=== PATIENT | female | born 1965 | race Two or more races ===

== ENCOUNTER 2017-03-08 13:06 | Emergency (ER) | payer SELFPAY ==
--- NOTE | ~2017-03-08 | CT114 ---
[facility] A Service of [facility] RADIOLOGY TEXT RESULTS PATIENT: SHEBA AUGUSTIN LOCATION: SED : 61 UNIT #: [id number] AGE: [address]: Katrin Gómez APRN SEX: F ORDER DR: [id number] [address] [address] [id number] MR#: [id number] Acc #: [id number] NAME: SHEBA AUGUSTIN : 1965 SEX: F STUDY DATE/TIME: 03/08/2017 14:39 UNIT: SED ROOM: STUDY DESCRIPTION: CT Soft Tissue Neck W Cont Attending Physician: Katrin Gómez A.P.R.N. Ordering Physician: Katrin Gómez A.P.R.N. MEDICAL IMAGING REPORT This report is preliminary unless electronic signature is present. EXAM CT soft tissue neck HISTORY 48-year-old female complains of sore throat with white patches x1 month. TECHNIQUE This CT exam was performed with one or more of the following radiation dose reduction techniques: automatic control, adjustment of mA and/or kV according to patient size, and iterative reconstruction. FINDINGS Thin section axial images performed through the neck from the skull base to the silvia following IV contrast. Initial IV infiltrated with about 30 mL of contrast. A new IV was started and an additional injection was performed of Isovue-370. The parotid submandibular and thyroid glands appear normal. There is shotty bilateral cervical lymphadenopathy left greater than right. On the left there are both anterior and posterior cervical lymph nodes which appear mildly prominent but no necrotic nodes identified. Mild prominence of the pharyngeal mucosal space but no focal fluid collections identified. No mass lesions. Head and neck vasculature unremarkable. The skull base normal. Degenerative disc changes noted in the cervical spine at the C5-6 disc level with uncovertebral osteophyte contributing to left C5-6 foraminal stenosis. Upper thorax unremarkable. IMPRESSION 1. Minimal prominence of the pharyngeal mucosal space nonspecific but may reflect pharyngitis but no focal abscess or drainable fluid collection. No mass lesions seen. 2. Mild predominately left anterior and posterior cervical [facility] A Service of [facility] RADIOLOGY TEXT RESULTS PATIENT: SHEBA AUGUSTIN LOCATION: SED : 61 UNIT #: [id number] AGE: [address]: Katrin Gómez APRN SEX: F ORDER DR: lymphadenopathy most likely reactive. Dictated by... Rich Maldonado M.D. THIS IS AN ELECTRONICALLY VERIFIED REPORT Rich Maldonado M.D. at 03/08/2017 6:22 PM SHARONA/zoraidar TD: 03/08/2017 16:22 JOB #: [id number] MEDICAL IMAGING REPORT Page 1 of 1
--- NOTE | ~2017-03-08 | EKG ---
PATIENT: SHEBA AUGUSTIN UNIT #: [id number] Ventricular Rate: 59 BPM Atrial Rate: 59 BPM P-R Interval: 144 ms QRS Duration: 88 ms Q-T Interval: 424 ms QTC Calculation(Bezet): 419 ms P Rico: -21 degrees Calculated R Rico: -2 degrees Calculated T Rico: 3 degrees Diagnosis Line: Sinus bradycardia with marked sinus arrhythmia Diagnosis Line: Otherwise normal ECG Diagnosis Line: No previous ECGs available Diagnosis Line: Confirmed by AC HERNANDEZ MD ([id number]) on Diagnosis Line: 03/15/2017 7:16:26 AM INTERPRETING MD: DESHAUN
[2017-03-08 13:39] LABS: BASOPHIL# 0.1 X10e3 (0-0.3); BASOPHIL% 1.1 % (0-2.5); EOSINOPHIL# 0.2 X10e3 (0-0.7); EOSINOPHIL% 1.9 % (0.0-7.0); HEMATOCRIT 46.1 % (35.0-45.0); HEMOGLOBIN 15.2 gm/dL (12.0-16.0); LYMPHOCYTE# 3.6 X10e3 (1.0-3.5); LYMPHOCYTE% 45.4 % (17.0-45.0); MEAN CELL VOLUME 86.8 FL (83-96); MEAN CORPUSCULAR HEMOGLOBIN 28.7 PG (28-34); MONOCYTE# 0.6 X10e3 (0-1.0); MONOCYTE% 8.1 % (3.0-12.0); NEUTROPHIL# 3.5 X10e3 (1.5-7.1); NEUTROPHIL% 43.5 % (40-75); PLATELET COUNT 275 X10e3 (140-420); RED BLOOD COUNT 5.31 X10e (3.90-5.30); RED CELL DISTRIBUTION WIDTH 13.8 % (11.0-15.5)
[2017-03-08 13:41] LABS: DIFF IND NO
[2017-03-08 13:50] LABS: POC - CKMB 1.5 ng/mL (0.0-7.9)
[2017-03-08 13:51] LABS: POC - TROPONIN <0.05 ng/mL (<=0.05)
[2017-03-08 13:56] LABS: BUN/CREATININE RATIO 22.85; CALCIUM SERUM 9.4 mg/dL (8.4-10.2); CREATININE SERUM 0.7 mg/dL (0.6-1.4); GLOM FILT RATE Estimated 98.9 mL/min (>60); POTASSIUM 3.7 mmol/L (3.5-5.1)
== END 2017-03-08 16:27 | disposition home or self-care (01) ==
LOC: SED 13:06
PROVIDERS: Nurse Practitioner
DX: J02.9 Acute pharyngitis, unspecified (principal)
CPT/HCPCS: 36415; 70491; 80048; 82553; 84443; 84484; 85025; 86308; 87651; 93005; 99284; Q9967